=== PATIENT | female | born 1975 | race Hispanic/Latino ===

== ENCOUNTER 2016-11-11 18:24 | Emergency (ER) | payer SELFPAY ==
[~2016-11-11] VITALS: Ht 149.9 cm; Wt 70.1 kg
[2016-11-11 21:19] LABS: HEMATOCRIT 40.2 % (36.0-46.0); MCH 25.1 PG (29.0-34.0); MCHC 30.8 G/DL (30.0-36.0); MCV 81.4 FL (83-99); MEAN PLAT.VOLUME 10.5 uM^3 (9.5-12.4); PLATELET COUNT 332 K/uL (156-360); RBC DIS.WIDTH-CV 13.8 % (11.8-14.6); RED BLOOD COUNT 4.94 M/uL (3.80-5.20); WHITE BLOOD COUNT 11.2 K/uL (4.1-10.2)
[2016-11-11 21:27] LABS: ADD MIUA? YES; BILIRUBIN NEGATIVE; BLOOD LARGE; COLOR YELLOW ((YELLOW)); GLUCOSE (STRIP) NEGATIVE; KETONES NEGATIVE; LEUKOCYTES NEGATIVE; NITRITE NEGATIVE; PROTEIN (STRIP) NEGATIVE; SPECIFIC GRAVITY 1.025 (1.000-1.030); UROBILINOGEN 0.2 MG/DL (0.2-1.0)
[2016-11-11 21:52] LABS: BACTERIA 1+ /HPF; EPITHELIAL CELLS RARE /HPF; MUCUS TRACE /LPF; RED BLOOD CELLS TNTC /HPF (0-5); UCUL ADDED? YES; WHITE BLOOD CELLS 0-5 /HPF (0-5)
[2016-11-11 21:56] LABS: CHLORIDE 108 mEq/L (99-109); POTASSIUM 4.4 mEq/L (3.7-5.4); SODIUM 140 mEq/L (136-147)
[2016-11-11 21:57] LABS: GLUCOSE 90 mg/dL (70-99)
[2016-11-11 21:59] LABS: ANION GAP 9 MEQ/L (2-14)
[2016-11-11 22:01] LABS: GFR ESTIMATE (CALCULATED) > 59 mL/min/
[2016-11-11 22:03] LABS: UREA NITROGEN (BUN) 16 mg/dL (9-23)
[2016-11-11 22:10] LABS: QUANTITATIVE HCG < 4.0 MIU/ML
[2016-11-11] MEDS ORDERED: NAPROXEN500 MG PO (23:09)
[2016-11-12 00:40] VITALS: BP 143/94
[2016-11-14 12:09] LABS: NEISSERIA GONORRHOEAE NEGATIVE
[2016-11-14 12:17] LABS: CHLAMYDIA TRACHOMATIS NEGATIVE
== END 2016-11-12 00:41 | disposition home or self-care (01) ==
LOC: EME 18:24
PROVIDERS: Physician Assistant Medical
DX: R10.2 Pelvic and perineal pain (principal); E78.5 Hyperlipidemia, unspecified; I10 Essential (primary) hypertension
CPT/HCPCS: 76856; 80048; 81003; 84702; 85027; 87086; 87210; 87491; 87591; 99281; 99285; J0696; J1885